=== PATIENT | female | born 1930 | race Caucasian/White ===

== ENCOUNTER 2016-10-27 12:53 | Emergency (ER) | payer OTHER, MEDICAID ==
[~2016-10-27] VITALS: Ht 157.5 cm; Wt 79.8 kg
[~2016-10-27 12:53] MED LIST: ASPI-1063 PO; CALC-886 PO; CHOL2000 PO; INSU100V32 SUBCUT; INSU100V9 SQ; INSU100V9 SUBCUT; NEU300 PO; OMEP20CA10 PO; SIMV20TA6 PO; ZOLP10TA2 PO
[2016-10-27 13:08] VITALS: BP_SYST 128
[2016-10-27 13:36] LABS: BILIRUBIN,URINE NEGATIVE (NEGATIVE); CLARITY/URINE CLEAR (CLEAR); COLOR,URINE YELLOW (YELLOW); GLUCOSE,URINE NEGATIVE (NEGATIVE); KETONES,URINE NEGATIVE (NEGATIVE); LEUKOCYTE ESTERASE ,URINE 1+ (NEGATIVE); NITRITE, URINE NEGATIVE (NEGATIVE); PROTEIN URINE NEGATIVE (NEGATIVE); UROBILINOGEN,URINE 0.2 (0.2-1.0)
[2016-10-27 13:42] LABS: BASOPHILS # (AUTO) 0.2 K/uL (0.0-0.2); BASOPHILS % (AUTO) 1.3 % (0.0-2.0); EOSINOPHILS # (AUTO) 0.2 K/uL (0.0-0.4); EOSINOPHILS % (AUTO) 1.4 % (0.0-4.0); HEMATOCRIT 43.5 % (36-48); HEMOGLOBIN 14.4 g/dL (12.0-16.0); LYMPHOCYTES # (AUTO) 3.6 K/uL (1.0-5.5); LYMPHOCYTES % (AUTO) 26.2 % (20.5-51.5); MEAN CORPUSCULAR HEMOGLOBIN 28 pg (27-31); MEAN CORPUSCULAR HGB CONC 33 % (32-36); MEAN CORPUSCULAR VOLUME 84 fL (79.0-98.0); MONOCYTES # (AUTO) 0.8 K/uL (0.0-1.0); MONOCYTES % (AUTO) 5.7 % (1.7-9.3); NEUTROPHILS # (AUTO) 8.9 K/uL (1.8-7.7); NEUTROPHILS % (AUTO) 65.4 % (40.0-70.0); PLATELET COUNT (AUTO) 271 K/uL (130-430); RED BLOOD CELL COUNT(AUTO) 5.21 MIL/uL (4.2-6.2); RED CELL DISTRIBUTION WIDTH 13.5 % (9.0-15.0); WHITE BLOOD COUNT (AUTO) 13.7 K/uL (4.8-10.8)
[2016-10-27 13:44] LABS: BLOOD, URINE TRACE (NEGATIVE)
[2016-10-27 13:45] LABS: BACTERIA,URINE FEW /HPF (None Seen); RBC,URINE 0-3 /HPF (0-3)
[2016-10-27 13:53] LABS: ANION GAP 5 (5-15); CALCIUM 9.1 mg/dL (8.4-11.0); CHLORIDE 103 mmol/L (98-107); CREATININE 0.81 mg/dL (0.55-1.30); GLUCOSE 90 mg/dL (70-99); POTASSIUM 4.5 mmol/L (3.5-5.1); SODIUM SERUM 140 mmol/L (136-145); UREA NITROGEN, BLOOD 20 mg/dL (8-21)
[2016-10-27] MEDS ORDERED: NACL 0.9% 1,000 ML IV ONE (13:56)
[2016-10-27 13:58] LABS: ALANINE AMINOTRANSFERASE 20 U/L (12-78); ALBUMIN 3.6 g/dL (3.4-4.8); ASPARTATE AMINOTRANSFERASE 15 U/L (10-37); LIPASE 83 U/L (73-393); TOTAL BILIRUBIN 0.4 mg/dL (0.0-1.0)
[2016-10-27 14:01] LABS: INR 0.9 (0.8-1.2); PROTHROMBIN TIME 10.3 SECS (9.5-12.5)
[2016-10-27] MEDS ORDERED: LEVOFLOXACIN 500 MG/D5W 100 ML IV ONE (16:00)
[2016-10-27 16:50] VITALS: BP_SYST 154
== END 2016-10-27 16:50 | disposition home or self-care (01) ==
LOC: SED 12:53
DX: J18.9 Pneumonia, unspecified organism (principal); R09.1 Pleurisy; J45.909 Unspecified asthma, uncomplicated; K21.9 Gastro-esophageal reflux disease without esophagitis; I10 Essential (primary) hypertension; E11.9 Type 2 diabetes mellitus without complications; Z85.42 Personal history of malignant neoplasm of other parts of uterus; Z88.5 Allergy status to narcotic agent; Z88.8 Allergy status to other drugs, medicaments and biological substances; Z79.899 Other long term (current) drug therapy
CPT/HCPCS: 36415; 71010; 74176; 80053; 81000; 82150; 83605; 83690; 85025; 85610; 85730; 87086; 96365; 99285; J1956; J7030

== ENCOUNTER 2018-01-22 15:24 | Emergency (ER) | payer OTHER, MEDICAID ==
[~2018-01-22] VITALS: Ht 157.5 cm; Wt 90.7 kg
[2018-01-22 15:24] VITALS: BP_SYST 156
[~2018-01-22 15:24] MED LIST changes: -ASPI-1063 PO; +ASPI-1154 PO
[2018-01-22] MEDS ORDERED: LEVOFLOXACIN 500 MG/D5W 100 ML IV ONE (16:00)
[2018-01-22] MEDS ORDERED: ALBUTEROL SULFATE 0.083% 2.5 MG/3 ML VIAL.NEB INH ONE ×2 (16:00→18:00)
[2018-01-22 16:30] LABS: ANION GAP 9 (5-15); CALCIUM 9.6 mg/dL (8.4-11.0); CHLORIDE 100 mmol/L (98-107); CREATININE 0.81 mg/dL (0.55-1.30); GLUCOSE 292 mg/dL (70-99); SODIUM SERUM 139 mmol/L (136-145); UREA NITROGEN, BLOOD 14 mg/dL (8-21)
[2018-01-22 16:31] LABS: PROTHROMBIN TIME 10.2 SECS (9.5-12.5)
[2018-01-22 16:34] LABS: BASOPHILS % (AUTO) 0.3 % (0.0-2.0); EOSINOPHILS % (AUTO) 0.3 % (0.0-4.0); HEMATOCRIT 41.3 % (36-48); HEMOGLOBIN 12.9 g/dL (12.0-16.0); LYMPHOCYTES # (AUTO) 1.3 K/uL (1.0-5.5); LYMPHOCYTES % (AUTO) 20.1 % (20.5-51.5); MEAN CORPUSCULAR HEMOGLOBIN 28 pg (27-31); MEAN CORPUSCULAR HGB CONC 31 % (32-36); MEAN CORPUSCULAR VOLUME 88 fL (79.0-98.0); MONOCYTES # (AUTO) 0.1 K/uL (0.0-1.0); MONOCYTES % (AUTO) 1.7 % (1.7-9.3); NEUTROPHILS # (AUTO) 5.2 K/uL (1.8-7.7); NEUTROPHILS % (AUTO) 77.6 % (40.0-70.0); PLATELET COUNT (AUTO) 222 K/uL (130-430); RED BLOOD CELL COUNT(AUTO) 4.68 MIL/uL (4.2-6.2); RED CELL DISTRIBUTION WIDTH 14.1 % (9.0-15.0); WHITE BLOOD COUNT (AUTO) 6.6 K/uL (4.8-10.8)
[2018-01-22 16:46] LABS: ALANINE AMINOTRANSFERASE 60 U/L (12-78); ALBUMIN 3.2 g/dL (3.4-4.8); ASPARTATE AMINOTRANSFERASE 44 U/L (10-37); TOTAL BILIRUBIN 0.4 mg/dL (0.0-1.0)
[2018-01-22 17:27] LABS: BILIRUBIN,URINE NEGATIVE (NEGATIVE); CLARITY/URINE CLEAR (CLEAR); COLOR,URINE YELLOW (YELLOW); GLUCOSE,URINE 3+ (NEGATIVE); KETONES,URINE NEGATIVE (NEGATIVE); LEUKOCYTE ESTERASE ,URINE NEGATIVE (NEGATIVE); PH,URINE 7.5 (5.0-8.0); PROTEIN URINE NEGATIVE (NEGATIVE)
[2018-01-22 17:28] LABS: BLOOD, URINE TRACE (NEGATIVE); NITRITE, URINE NEGATIVE (NEGATIVE); UROBILINOGEN,URINE 0.2 (0.2-1.0)
[2018-01-22 17:32] LABS: BACTERIA,URINE RARE /HPF (None Seen); RBC,URINE 0-3 /HPF (0-3); WBC,URINE 0-3 /HPF (0-3)
[2018-01-22] MEDS ORDERED: KETOROLAC TROMETHAMINE 30 MG VIAL IVP ONE (18:00)
[2018-01-22] MEDS ORDERED: FUROSEMIDE 20 MG/2 ML VIAL IVP ONE (18:15)
[2018-01-22] MEDS ORDERED: OSTEOMATRIX PO (19:10)
[2018-01-22] MEDS ORDERED: MONT10TA22 PO (19:10)
[2018-01-22] MEDS ORDERED: FLUT1DIS3 IH (19:10)
[2018-01-22] MEDS ORDERED: VITD2000 PO (19:10)
[2018-01-22] MEDS ORDERED: NIFE-2 PO (19:10)
[2018-01-22] MEDS ORDERED: UMEC1BLS IH (19:10)
[2018-01-22] MEDS ORDERED: SIMV10TA2 PO (19:10)
[2018-01-22] MEDS ORDERED: IBAN150T8 PO (19:10)
[2018-01-22] MEDS ORDERED: MIRT15TA7 PO (19:10)
[2018-01-22] MEDS ORDERED: ASPI-1153 PO (19:10)
[2018-01-22] MEDS ORDERED: INSU100I4 SQ (19:10)
[2018-01-22] MEDS ORDERED: FURO-149 PO (19:10)
[2018-01-22] MEDS ORDERED: RESEYE OP ×2 (19:10)
[2018-01-22] MEDS ORDERED: POTA8TAB4 PO (19:10)
[2018-01-22] MEDS ORDERED: PRED20TA PO (19:10)
[2018-01-22] MEDS ORDERED: LEVO25TA7 PO (19:10)
[2018-01-22] MEDS ORDERED: BENA40TA2 PO (19:10)
[2018-01-22] MEDS ORDERED: DICL50TA9 PO (19:10)
[2018-01-22] MEDS ORDERED: LUBI8CAP PO ×2 (19:10)
[2018-01-22] MEDS ORDERED: FLUT1AER INH (19:10)
[2018-01-22] MEDS ORDERED: INSU100V9 SQ (19:10)
[2018-01-22] MEDS ORDERED: AZIT250T PO (19:10)
[2018-01-22] MEDS ORDERED: FLO44 INH (19:10)
[2018-01-22] MEDS ORDERED: GABA-531 PO (19:10)
[2018-01-22] MEDS ORDERED: SODIUM POLYSTYRENE SULFONATE 15 GM/60 ML UDBTL PO ONE (19:15)
[2018-01-22] MEDS ORDERED: INSULIN REGULAR, HUMAN 10 UNITS/0.1 ML INJ IVP ONE (19:15)
[2018-01-22 19:50] VITALS: BP_SYST 130
== END 2018-01-22 19:50 | disposition home or self-care (01) ==
LOC: SED 15:24
DX: J40 Bronchitis, not specified as acute or chronic (principal); E11.9 Type 2 diabetes mellitus without complications; K21.9 Gastro-esophageal reflux disease without esophagitis; I10 Essential (primary) hypertension; E78.5 Hyperlipidemia, unspecified; Z90.49 Acquired absence of other specified parts of digestive tract; Z90.710 Acquired absence of both cervix and uterus; Z79.899 Other long term (current) drug therapy; Z88.8 Allergy status to other drugs, medicaments and biological substances
CPT/HCPCS: 36415; 36600; 71045; 80053; 81000; 82803; 83605; 83880; 84484; 85025; 85379; 85610; 86710; 87040; 93005; 94640; 96365; 96375; 99285; J1815; J1885; J1940; J1956; J7613